=== PATIENT | female | born 1995 | race Two or more races ===

== ENCOUNTER 2020-10-05 14:13 | Emergency (ER) | payer OTHER ==
[~2020-10-05] VITALS: Ht 170.2 cm; Wt 69.4 kg
[2020-10-05] MEDS ORDERED: SILVER SULFADIA50 GM TOP (16:23)
[2020-10-05] MEDS ORDERED: DUI500 PO (16:23)
[2020-10-05] MEDS ORDERED: DICLOFENAC SODI75 MG PO (16:23)
== END 2020-10-05 17:19 | disposition home or self-care (01) ==
LOC: ER 14:13
DX: S40.812A Abrasion of left upper arm, initial encounter (principal); S80.812A Abrasion, left lower leg, initial encounter; S30.811A Abrasion of abdominal wall, initial encounter; S30.810A Abrasion of lower back and pelvis, initial encounter; V19.88XA Pedal cyclist (driver) (passenger) injured in other specified transport accidents, initial encounter; Y93.I9 Activity, other involving external motion; Y92.89 Other specified places as the place of occurrence of the external cause; Y99.8 Other external cause status